=== PATIENT | female | born 2000 | race Caucasian/White ===

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

== ENCOUNTER 2022-04-06 17:50 | Emergency (ER) | payer MEDICAID ==
[~2022-04-06] VITALS: Ht 162.6 cm; Wt 56.8 kg
[~2022-04-06 17:50] MED LIST changes: +ONDA4TAB6 PO
[2022-04-07 00:39] LABS: URINE HCG NEGATIVE (NEG)
[2022-04-07 00:52] LABS: ALANINE AMINOTRANSFERASE 26 U/L (12-78); ALBUMIN 3.8 G/DL (3.4-5.0); ALBUMIN/GLOBULIN RATIO 0.9 (1.1-1.5); ALKALINE PHOSPHATASE 84 IU/L (46-116); ANION GAP 11 (8-16); APTT 33 SECONDS (22-32); ASPARTATE AMINO TRANSFERASE 19 U/L (10-37); BILIRUBIN,TOTAL 0.6 MG/DL (0.1-1.0); BLOOD UREA NITROGEN 13 MG/DL (7-18); BUN/CREATININE RATIO 14.9 (6.6-38.0); CALCIUM 9.1 MG/DL (8.5-10.1); CHLORIDE 100 MMOL/L (99-107); CREATININE 0.87 MG/DL (0.40-0.90); GLUCOSE 74 MG/DL (70-104); LIPASE < 50 U/L (73-393); POTASSIUM 3.8 MMOL/L (3.5-5.1); SODIUM 138 MMOL/L (135-145); TOTAL CARBON DIOXIDE 27.2 MMOL/L (24-32); eGFR 82 ML/MIN
[2022-04-07] MEDS ORDERED: iohexol 350MG/ML 100ml bottle IV ONE (01:08)
[2022-04-07 01:12] LABS: COLOR,URINE YELLOW (Yellow); UA COLLECTION TYPE CLN CATCH MIDSTREAM
[2022-04-07 01:13] LABS: CLARITY,URINE SLIGHTLY CLOUDY (Clear); GLUCOSE, URINE NEGATIVE (Neg); KETONES,URINE 40 mg/dl (Neg); LEUKOCYTE ESTERASE ,URINE TRACE (Neg); PROTEIN,URINE TRACE mg/dl (Neg)
[2022-04-07 01:14] LABS: NITRITES, URINE NEGATIVE (Neg); OCCULT BLOOD,URINE NEGATIVE (Neg)
[2022-04-07 01:15] LABS: UROBILINOGEN,URINE 0.2 E.U/dL (0.2-1.0)
[2022-04-07 01:17] LABS: BACTERIA,URINE 3+ /HPF (Neg); RBC,URINE 0-2 /HPF (0-2); SQUAMOUS EPITHELIAL CELL,UR MODERATE /LPF (FEW)
[2022-04-07 01:30] LABS: HEMATOCRIT 40.1 % (35.0-45.0); HEMOGLOBIN 13.9 g/dl (12.0-16.0); LYMPHOCYTES % (AUTO) 8.7 % (21-51); MEAN CORPUSCULAR HGB CONC 34.6 g/dL (33.0-36.5); MEAN CORPUSCULAR VOLUME 89.7 FL (78-98); MEAN PLATELET VOLUME 8.2 FL (7.4-10.4); MONOCYTES % (AUTO) 9.7 % (2-12); NEUTROPHILS % (AUTO) 80.4 % (42-75); RED BLOOD COUNT 4.47 X10'6 (4.20-5.60); RED CELL DISTRIBUTION WIDTH 13.5 % (11.5-14.5); WHITE BLOOD COUNT 14.4 X10'3 (4.5-11.0)
[2022-04-07 01:31] LABS: BASOPHILS # (AUTO) 0.1 X10'3 (0-0.2); BASOPHILS % (AUTO) 0.7 % (0-1); EOSINOPHILS # (AUTO) 0.1 X10'3 (0-0.9); EOSINOPHILS % (AUTO) 0.5 % (0-6); LYMPHOCYTES # (AUTO) 1.2 X10'3 (1.1-4.8); MONOCYTES # (AUTO) 1.4 X10'3 (0-0.9); NEUTROPHILS # (AUTO) 11.6 X10'3 (1.8-7.7)
[2022-04-07] MEDS ORDERED: LORazepam 0.5 MG tablet PO ONE (05:35)
[2022-04-07] MEDS ORDERED: ondansetron/PF 4mg/2ml inj IV ONE (05:35)
[2022-04-07] MEDS ORDERED: LIDOcaine 1%/PF 5ML 10 MG/ML VIAL IM ONE (06:25)
[2022-04-07] MEDS ORDERED: amox tr/potassium clavulanate 875/125mg TAB PO ONE (08:10)
[2022-04-07] MEDS ORDERED: dexamethasone sod phosphate 10mg/ml inj PO STA (08:10)
[2022-04-07 08:54] LABS: APPEARANCE,CSF CLEAR; CSF RBC 0 /CU MM (0); CSF SUPERNATANT COLOR COLORLESS; CSF VOLUME 4 ML; CSF WBC CT 2 /CU MM (0-5); TUBE# COUNTED 4
[2022-04-07 10:36] VITALS: BP 93/51
[2022-04-07] MEDS ORDERED: AMOX-117 PO ×3 (11:15→11:42)
[2022-04-07 17:52] LABS: PLATELET COUNT 187 X10'3 (140-440)
== END 2022-04-07 11:48 | disposition home or self-care (01) ==
LOC: ER 17:52
DX: J02.9 Acute pharyngitis, unspecified (principal); Z20.822 Contact with and (suspected) exposure to COVID-19; M54.2 Cervicalgia; R11.2 Nausea with vomiting, unspecified; F12.90 Cannabis use, unspecified, uncomplicated; Z91.040 Latex allergy status; Z79.2 Long term (current) use of antibiotics; Z79.899 Other long term (current) drug therapy
CPT/HCPCS: 36415; 62270; 70450; 70491; 80053; 81001; 81025; 83690; 85025; 85610; 85730; 87015; 87070; 87077; 87081; 87088; 87635; 87880; 89051; 96374; 99285; C9803; J1100; J2405; J3490; Q9967

== ENCOUNTER 2024-09-08 08:02 | Emergency (ER) | payer MEDICAID, OTHER ==
[~2024-09-08] VITALS: Ht 162.6 cm; Wt 50.7 kg
[~2024-09-08 08:02] MED LIST changes: +AMOX-117 PO; +ONDA-245 PO; -ONDA8TAB13 PO
[2024-09-08] MEDS: ketorolac trometh 15mg/ml vial 15 MG/ML ML IM ONE (09:47)
[2024-09-08 10:00] VITALS: BP 122/68; PULSE 78; RESP 16; TEMP 98.8; O2SAT 97
== END 2024-09-08 10:02 | disposition home or self-care (01) ==
LOC: ER 08:03
DX: S39.012A Strain of muscle, fascia and tendon of lower back, initial encounter (principal); F12.90 Cannabis use, unspecified, uncomplicated; Z91.040 Latex allergy status; Z91.018 Allergy to other foods; Z79.899 Other long term (current) drug therapy; Z79.1 Long term (current) use of non-steroidal anti-inflammatories (NSAID); X58.XXXA Exposure to other specified factors, initial encounter; Y93.89 Activity, other specified; Y92.89 Other specified places as the place of occurrence of the external cause; Y99.0 Civilian activity done for income or pay
CPT/HCPCS: 72100; 72220; 96372; 99284; J1885

== ENCOUNTER 2025-04-30 19:50 | Emergency (ER) | payer MEDICAID, OTHER ==
[~2025-04-30] VITALS: Ht 167.6 cm; Wt 54.5 kg
--- NOTE | 2025-04-30 20:33 | Physician Documentation ---
History of Present Illness ~ Chief Complaint: Vomiting Stated Complaint: OD Time Seen by MD: 20:32 Primary Medical Doctor: [facility] HPI Patient presents to the emergency room dropped off in the ambulance [place] by her friends. Patient's cleaning of vomiting however that has not very helpful with history taking and denies ingesting any toxic substances. Does endorse that her friend committed suicide recently. She is oriented to person and month and knows that she is in a hospital that has made a mistake and thinks she is at [facility]. Medication Reconciliation Allergies: Coded Allergies: latex (Unverified Allergy, Intermediate, 09/08/24) kiwi (Verified Allergy, Unknown, 09/08/24) Scheduled Amitriptyline Hcl* (Elavil*), 25 MG PO HS, (Reported) Amox Tr/Potassium Clavulanate (Augmentin 875-125 Tablet), 1 TAB PO Q12H Ibuprofen* (Motrin*), 1 TAB PO Q8H Metoclopramide HCl (Reglan), 1 TAB PO Q6H Ondansetron 8mg ODT (Ondansetron Odt), 1 TAB PO Q6H Ondansetron Hcl (Zofran), 1 TAB PO Q8H Pantoprazole Sodium (PROTONIX tablet), 1 TAB PO DAILY Scheduled PRN Ondansetron 8mg ODT (Ondansetron Odt), 1 TAB PO TID PRN for nausea/vomiting Past Medical History Past Medical History: No Pertinent History Past Surgical History: no surgical history Alcohol Use: Rarely Drug Use: marijuana Lives with: Family Lives In: Home Occupation: child Review of Systems ROS All review of systems negative except as per HPI Physical Exam Vital Signs: Heart Rate: 86, Respiratory Rate: 18, BP: 107/71, Pulse Oximetry: 98, Weight: 54.550 Oxygen Flow Rate: 0 Physical Exam General: Patient is sleeping heavily but easily aroused. Appears intoxicated Head: Normocephalic and atraumatic. Eyes: Conjunctival normal. EOMI. PERRL. ENT: Mucous membranes moist. Neck: Supple, trachea is midline. Chest: Clear to auscultation bilaterally without rales, rhonchi, or wheezes. There is no accessory muscle use or retractions. Cardiac: RRR without murmurs, gallops, or rubs. Abd: Soft, nondistended, nontender, with normoactive bowel sounds. No guarding, rebound, or rigidity. Progress Results/Orders Results/Orders Orders - AMANUEL JOHNS MD Monitor (04/30/25 20:35) Saline Lock (04/30/25 20:35) Cult Urine + [place] [address] (04/30/25 21:33) Normal Saline 1000ml (0.9% Sodium Chlori (04/30/25 21:35) Completed Orders - AMANUEL JOHNS MD Ondansetron Inj. (Zofran 4mg/2ml Vial) (04/30/25 20:30) Normal Saline 1000ml (0.9% Sodium Chlori (04/30/25 20:30) Cbc/Diff (04/30/25 20:35) BMP (04/30/25 20:35) Drug Screen, Urine (04/30/25 20:35) Hcg, Ur Ql (04/30/25 20:35) Ethanol (04/30/25 20:35) Ua W/Microscopic, Cult If Ind (04/30/25 21:00) Ondansetron Inj. (Zofran 4mg/2ml Vial) (04/30/25 21:35) Potassium Cl Sr Tablet (K-Dur Tablet) (04/30/25 21:34) Medications Received in ER Medications (Trade) Dose Ordered Sig/Edilma Route PRN Reason Start Time Stop Time Status Last Admin Dose Admin (Zofran 4mg/2ml vial) 4 mg ONCE ONCE IV 04/30/25 20:30 04/30/25 20:31 DC 04/30/25 20:45 4 MG Sodium Chloride 1,000 ml @ 1,000 mls/hr ONCE ONCE IV 04/30/25 20:30 04/30/25 21:29 DC 04/30/25 20:45 1,000 MLS/HR Vital Signs 04/30/25 04/30/25 04/30/25 19:56 20:03 20:55 Pulse 89 86 Resp 20 18 16 B/P (MAP) 107/71 107/71 (83) Pulse Ox 96 98 O2 Flow Rate 0 0 Laboratory Tests Test 04/30/25 20:45 04/30/25 21:00 White Blood Count 6.1 Red Blood Count 4.50 Hemoglobin 13.7 Hematocrit 40.0 Mean Corpuscular Volume 89.0 Mean Corpuscular Hemoglobin 30.4 Mean Corpuscular Hemoglobin Concent 34.2 Red Cell Distribution Width 13.1 Platelet Count 247 Mean Platelet Volume 7.3 L Neutrophils (%) (Auto) 70.7 Lymphocytes (%) (Auto) 21.5 Monocytes (%) (Auto) 6.3 Eosinophils (%) (Auto) 1.0 Basophils (%) (Auto) 0.5 Neutrophils # (Auto) 4.3 Lymphocytes # (Auto) 1.3 Monocytes # (Auto) 0.4 Eosinophils # (Auto) 0.1 Basophils # (Auto) 0.0 CBC Comment Sodium Level 141 Potassium Level 3.2 L Chloride Level 105 Carbon Dioxide Level 25.3 Anion Gap 11 Blood Urea Nitrogen 7 Creatinine 0.64 Estimated GFR/1.73 m2 > 90 BUN/Creatinine Ratio 10.9 Glucose Level 90 Calcium Level 8.6 Albumin 4.0 Chemistry Comments Ethyl Alcohol Level 259 H Urine Specimen Description Urinal Urine Color Yellow Urine Clarity Clear Urine pH 6.0 Urine Specific [place] <=1.005 Urine Protein Negative Urine Glucose (UA) Negative Urine Ketones Negative Urine Occult Blood Moderate H Urine Nitrite Negative Urine Bilirubin Negative Urine Urobilinogen 0.2 Urine Leukocyte Esterase Negative Urine RBC 3-10 Urine WBC 5-10 H Urine Squamous Epithelial Cells Few Urine Bacteria 2+ Urine Culture Indicated Indicated Volume Urine Centrifuged 10 ml Urine HCG, Qualitative Negative Urine Comment Urine Opiates Screen Negative Urine Methadone Screen Negative Urine Fentanyl Screen Negative Urine Barbiturates Screen Negative Urine Phencyclidine Screen Negative Urine Amphetamines Screen Negative Urine Benzodiazepines Screen Negative Urine Cocaine Screen Negative Urine Cannabinoids Screen Negative Drug Screen Comment Medical Decision Making Findings Patient presents to the emergency room dropped off by friends in the ambulance [place]. Differentials include but are not limited to intracranial process, intoxication, metabolic encephalopathy therefore emergent labs ordered which show patient that has significant alcohol intoxication. No evidence of head injury and he had not feel patient requires a CT scan. She was monitored in the emergency room for a time until achieving clinical sobriety. Potassium supplemented. No SI. Responsible drinking habits discussed. Departure Disposition: HOME / SELF CARE / HOMELESS Impression: Primary Impression: Alcoholic gastritis Additional Impression: Alcoholic intoxication Condition: Improved Discharge Instructions: Alcoholic Gastritis-Brief Additional Instructions: Drink responsibly Referrals: NO PRIMARY CARE PROVIDER (PCP) Prescriptions Ondansetron 8mg ODT (Ondansetron Odt) 8 Mg Tab.rapdis 1 TAB PO Q6H for nausea/vomiting for 3 Days, #12 TAB 0 Refills Prov: AMANUEL JOHNS MD 04/30/25 Education Educated: Patient Educated regarding: diagnosis, treatment, need for follow up Signature Scribe Signature: No scribe Attestation: The note accurately reflects work and decisions made by me.Amanuel Johns MD 04/30/25 21:38 AMANUEL JOHNS MD Apr 30, 2025 20:33
[2025-04-30] MEDS: normal saline 1000ml 1,000 ML IV ONE ×2 (20:45→22:07)
[2025-04-30] MEDS: ondansetron/PF 4mg/2ml inj IV ONE ×2 (20:45→22:07)
[2025-04-30 20:51] LABS: MEAN PLATELET VOLUME 7.3 FL (7.4-10.4); RED CELL DISTRIBUTION WIDTH 13.1 % (11.5-14.5)
[2025-04-30 21:09] LABS: CREATININE 0.64 MG/DL (0.40-0.90); ETHANOL 259 MG/DL (<10); TOTAL CARBON DIOXIDE 25.3 MMOL/L (24-32); eCRCL 117 ML/MIN; eGFR > 90 ML/MIN
[2025-04-30 21:27] LABS: LEUKOCYTE ESTERASE ,URINE NEGATIVE (Neg); NITRITES, URINE NEGATIVE (Neg); OCCULT BLOOD,URINE MODERATE (Neg); UA COLLECTION TYPE URINAL; URINE HCG NEGATIVE (NEG)
[2025-04-30 21:32] LABS: SQUAMOUS EPITHELIAL CELL,UR FEW /LPF (FEW)
[2025-04-30] MEDS ORDERED: ONDA-245 PO (21:37)
[2025-04-30 21:38] LABS: URINE AMPHETAMINE SCREEN NEGATIVE (Neg); URINE BARBITUATE SCREEN NEGATIVE (Neg); URINE BENZODIAZEPINES SCREEN NEGATIVE (Neg); URINE CANNABINOID SCREEN NEGATIVE (Neg); URINE COCAINE SCREEN NEGATIVE (Neg); URINE METHADONE SCREEN NEGATIVE (Neg); URINE OPIATE SCREEN NEGATIVE (Neg); URINE PHENCYCLIDINE SCREEN NEGATIVE (Neg)
[2025-04-30] MEDS: potassium Cl 20 mEq SR tablet PO STA (22:07)
[2025-04-30 23:15] VITALS: BP 105/86; PULSE 96; RESP 16; O2SAT 96
== END 2025-04-30 23:19 | disposition home or self-care (01) ==
LOC: ER 19:51
DX: F10.129 Alcohol abuse with intoxication, unspecified (principal); K29.20 Alcoholic gastritis without bleeding; Z91.040 Latex allergy status; Z91.018 Allergy to other foods; Z79.899 Other long term (current) drug therapy; Y90.8 Blood alcohol level of 240 mg/100 ml or more
CPT/HCPCS: 36415; 80048; 80305; 80320; 81001; 81025; 85025; 87088; 96361; 96374; 96376; 99284; J2405; J7030; 87077; 87186; A6449